=== PATIENT | male | born 1940 | race Caucasian/White ===

== ENCOUNTER 2020-06-30 10:43 | Outpatient (CLI) | payer BC, SELFPAY ==
[2020-06-30 11:27] LABS: Anion Gap 5 mmol/L (8-16); Blood Urea Nitrogen 17 mg/dL (9-20); Calcium 9.1 mg/dL (8.4-10.2); Carbon Dioxide 33 mmol/L (22-30); Chloride 100 mmol/L (98-107); Cholesterol 175 mg/dL (0-200); Estimated Glomerular Filt Rate > 60; Glucose 110 mg/dL (75-110); HDL Direct 37 mg/dL; Potassium 4.5 mmol/L (3.4-5.0); Sodium 138 mmol/L (137-145); Triglycerides 89 mg/dL (<150)
[2020-06-30 11:31] LABS: Hemoglobin A1C 5.7 % (<5.7)
[2020-06-30 11:38] LABS: LDL Cholesterol Direct 117 mg/dL
[2020-06-30 13:58] LABS: Vitamin D 25 Hydroxy 32.1 ng/mL
== END 2020-06-30 10:44 | disposition home or self-care (01) ==
PROVIDERS: PCP Internal Medicine; Referring Provider Urology; Visit Provider Internal Medicine
DX: E78.5 Hyperlipidemia, unspecified (principal); E55.9 Vitamin D deficiency, unspecified; R73.02 Impaired glucose tolerance (oral); C61 Malignant neoplasm of prostate
CPT/HCPCS: 36415; 80048; 80061; 82306; 83036